=== PATIENT | male | born 1985 | race African-American/Black ===

== ENCOUNTER 2019-08-10 13:44 | Emergency (ER) | payer BC ==
[~2019-08-10] VITALS: Ht 182.9 cm; Wt 81.6 kg
[2019-08-10 14:24] VITALS: BP_SYST 130; BP_SYST 140; BP_SYST 155; BP_DIAS 74; BP_DIAS 84; BP_DIAS 86
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
[2019-08-10 14:34] VITALS: BP 155/84
[2019-08-10] MEDS ORDERED: VISTARIL25 M1 PO (15:51)
[2019-08-10] MEDS ORDERED: FAMOTIDINE20 MG ORAL (15:51)
[2019-08-10 16:00] VITALS: BP 155/84
== END 2019-08-10 16:00 | disposition home or self-care (01) ==
LOC: EMR 14:45
DX: R14.0 Abdominal distension (gaseous) (principal); F43.9 Reaction to severe stress, unspecified; I10 Essential (primary) hypertension; K42.9 Umbilical hernia without obstruction or gangrene
CPT/HCPCS: 99282

== ENCOUNTER 2020-03-26 11:26 | Day surgery (SDC) | payer SELFPAY ==
[2020-03-26] VITALS (7 sets, daily range): BP systolic 131–137; BP diastolic 65–82
[~2020-03-26] VITALS: Ht 182.9 cm; Wt 88.0 kg
[2020-03-26 08:32] LABS: BASOPHILS % (AUTO) 1.2 % (0.0-2.0); EOSINOPHILS % (AUTO) 0.2 % (0.0-3.0); HEMATOCRIT 50.5 % (42.0-52.0); HEMOGLOBIN 16.8 G/DL (14.2-18.0); LYMPHOCYTES % (AUTO) 22.5 % (20.0-45.0); MEAN CORPUSCULAR VOLUME 89 FL (80-99); MONOCYTES % (AUTO) 7.9 % (1.0-10.0); NEUTROPHILS % (AUTO) 68.2 % (45.0-75.0); PLATELET COUNT 308 K/UL (150-450); RED CELL DISTRIBUTION WIDTH 12.9 % (11.6-14.8); WHITE BLOOD COUNT 8.2 K/UL (4.8-10.8)
[~2020-03-26 11:26] MED LIST: FAMOTIDINE20 MG ORAL; LR 1000ml 1,000 ML IVLG SCH; VISTARIL25 M1 PO
[2020-03-26] MEDS ORDERED: Lidocaine 1% MPF 10mg/ml 5ml ONE (11:27)
[2020-03-26] MEDS ORDERED: LR 1000ml ONE (11:27)
[2020-03-26] MEDS ORDERED: LOSARTAN POTASS50 MG ORAL (12:12)
--- NOTE | 2020-03-26 12:30 | Pre-Procedure Note/Attestation ---
Pre-Procedure Note/Attestation Complete Prior to Procedure Planned Procedure: not applicable Procedure Narrative: esophagogastroduodenoscopy and colonoscopy Indications for Procedure Pre-Operative Diagnosis: GERD, abd pain, rectal bleed Attestation I attest that I discussed the nature of the procedure; its benefits; risks and complications; and alternatives (and the risks and benefits of such alternatives), prior to the procedure, with the patient (or the patient's legal medical representative). I attest that, if there was a reasonable possibility of needing a blood transfusion, the patient (or the patient's legal medical representative) was given the [facility] standardized written summary, pursuant to the [place] Blood Safety Act ([place] Health and Safety Code # 1645, as amended). I attest that I re-evaluated the patient just prior to the surgery and that there has been no change in the patient's H&P, except as documented below: Bryan Ibarra MD Mar 26, 2020 12:30
--- NOTE | 2020-03-26 12:32 | Short Stay Surgery H&P ---
History of Present Illness History of Present Illness Chief Complaint GERD, abd pain, rectal bleed HPI Brandon Hanks is a 35 year old male who was admitted on for Gerd, Rectal Bleed Patient History Allergies: Coded Allergies: No Known Allergies (Unverified , 03/24/20) PAST MEDICAL HISTORY: (1) Anxiety (2) Adolescent depression (3) HTN (hypertension) Medication History Scheduled Losartan Potassium* (Losartan Potassium*), 50 MG ORAL DAILY, (Reported) Scheduled PRN Hydroxyzine Pamoate (Vistaril), 25 MG PO Q8HR PRN for anxiety/stress Discontinued Medications Famotidine* (Pepcid 20mg tablet*), 20 MG ORAL DAILY Discontinued Reason: Pt stopped taking med Review of Systems Cardiovascular: Reports: no symptoms Respiratory: Reports: no symptoms Skeletal: Reports: no symptoms Gastrointestinal: Reports: gastro esophageal reflux disease Genitourinary: Reports: no symptoms Neurologic: Reports: no symptoms Endocrine: Reports: no symptoms Physical Exam Vital Signs Last Vital Signs Date Time Temp Pulse Resp B/P (MAP) Pulse Ox O2 Delivery O2 Flow Rate FiO2 03/26/20 12:07 Room Air 03/26/20 09:17 97.6 95 16 136/65 98 Labs Laboratory Tests Test 03/26/20 08:20 White Blood Count 8.2 K/UL (4.8-10.8) Red Blood Count 5.70 M/UL (4.70-6.10) Hemoglobin 16.8 G/DL (14.2-18.0) Hematocrit 50.5 % (42.0-52.0) Mean Corpuscular Volume 89 FL (80-99) Mean Corpuscular Hemoglobin 29.4 PG (27.0-31.0) Mean Corpuscular Hemoglobin Concent 33.2 G/DL (32.0-36.0) Red Cell Distribution Width 12.9 % (11.6-14.8) Platelet Count 308 K/UL (150-450) Mean Platelet Volume 9.3 FL (6.5-10.1) Neutrophils (%) (Auto) 68.2 % (45.0-75.0) Lymphocytes (%) (Auto) 22.5 % (20.0-45.0) Monocytes (%) (Auto) 7.9 % (1.0-10.0) Eosinophils (%) (Auto) 0.2 % (0.0-3.0) Basophils (%) (Auto) 1.2 % (0.0-2.0) Skin: normal HENT: normal Heart: normal Lungs: normal Abdomen: normal Extremities: normal Plan Plan of Care EGD and colonoscopy Attestation Are the patient's medical conditions optimized for surgery? Attestation Response: yes Bryan Ibarra MD Mar 26, 2020 12:32
[2020-03-26] MEDS ORDERED: oxyCODONE HCL/Acetaminophen 5/325mg ORAL PRN (13:00)
[2020-03-26] MEDS ORDERED: HYDROcodone/Acetamin 7.5/325 tab ORAL PRN (13:00)
[2020-03-26] MEDS ORDERED: Ketorolac 30mg Inj IV PRN ×2 (13:00)
[2020-03-26] MEDS ORDERED: fentaNYL 100 mcg/2 mL IV PRN (13:00)
[2020-03-26] MEDS ORDERED: Meperidine 25mg/1ml Inj (FOR RIGORS ONLY) IV PRN (13:00)
[2020-03-26] MEDS ORDERED: Hydromorphone 0.5mg/0.5ml inj IVP PRN (13:00)
[2020-03-26] MEDS ORDERED: Midazolam 2mg/2ml Inj IVP PRN (13:00)
[2020-03-26] MEDS ORDERED: HYDROcodone/Acetamin 5/325 tab ORAL PRN (13:00)
[2020-03-26] MEDS ORDERED: Metoclopramide 10mg/2ml Inj IVP PRN (13:00)
[2020-03-26] MEDS ORDERED: Atropine Sulfate 0.4mg/ml inj IVP PRN (13:00)
[2020-03-26] MEDS ORDERED: DiphenhydrAMINE 50mg/ml Inj IVP PRN (13:00)
[2020-03-26] MEDS ORDERED: Labetalol 5mg/ml 20ml vial IV PRN (13:00)
[2020-03-26] MEDS ORDERED: LR 1000ml 1,000 ML IVLG SCH (13:00)
[2020-03-26] MEDS ORDERED: LORazepam Inj 2mg/ml 1ml IV PRN (13:00)
--- NOTE | 2020-03-26 13:05 | Anethesia Preoperative Eval ---
Anesthesia Pre-op PMH/ROS General Date of Evaluation: Mar 26, 2020 Time of Evaluation: 12:54 Anesthesiologist: Librado ASA Score: ASA 2 Mallampati Score Class I : Soft palate, uvula, fauces, pillars visible Class II: Soft palate, uvula, fauces visible Class III: Soft palate, base of uvula visible Class IV: Only hard plate visible Mallampati Classification: Class I Surgeon: Stacey Diagnosis: Rectal Bleeding Surgical Procedure: EGD/Colonoscopy Anesthesia History: none Family History: no anesthesia problems Allergies: Coded Allergies: No Known Allergies (Unverified , 03/24/20) Medications: see eMAR Patient NPO?: Yes Past Medical History Cardiovascular: Reports: HTN Gastrointestinal/Genitourinary: Reports: GERD Neurologic/Psychiatric: Reports: depression/anxiety Anesthesia Pre-op Phys. Exam Physician Exam Last Vital Signs Date Time Temp Pulse Resp B/P (MAP) Pulse Ox O2 Delivery O2 Flow Rate FiO2 03/26/20 12:07 Room Air 03/26/20 09:17 97.6 95 16 136/65 98 Constitutional: NAD Neurologic: CN 2-12 intact Cardiovascular: RRR Respiratory: CTA Gastrointestinal: S/NT/ND Airway Exam Mallampati Score: Class I MO: full ROM: full Teeth: missing, intact Anesthesia Pre-op A/P Labs Hematology Test 03/26/20 08:20 White Blood Count 8.2 K/UL (4.8-10.8) Red Blood Count 5.70 M/UL (4.70-6.10) Hemoglobin 16.8 G/DL (14.2-18.0) Hematocrit 50.5 % (42.0-52.0) Mean Corpuscular Volume 89 FL (80-99) Mean Corpuscular Hemoglobin 29.4 PG (27.0-31.0) Mean Corpuscular Hemoglobin Concent 33.2 G/DL (32.0-36.0) Red Cell Distribution Width 12.9 % (11.6-14.8) Platelet Count 308 K/UL (150-450) Mean Platelet Volume 9.3 FL (6.5-10.1) Neutrophils (%) (Auto) 68.2 % (45.0-75.0) Lymphocytes (%) (Auto) 22.5 % (20.0-45.0) Monocytes (%) (Auto) 7.9 % (1.0-10.0) Eosinophils (%) (Auto) 0.2 % (0.0-3.0) Basophils (%) (Auto) 1.2 % (0.0-2.0) Risk Assessment & Plan Assessment: ASA 2 Plan: TIVA Status Change Before Surgery: No Miguel A Pavon MD Mar 26, 2020 13:05
--- NOTE | 2020-03-26 13:14 | Immediate Post-Op Evaluation ---
Immediate Post-Op Evalulation Immediate Post-Op Evalulation Procedure: EGD/Colonoscopy Date of Evaluation: Mar 26, 2020 Time of Evaluation: 13:47 IV Fluids: 600 LR Blood Products: 0 Estimated Blood Loss: 2 Urinary Output: 0 Blood Pressure Systolic: 131 Blood Pressure Diastolic: 82 Pulse Rate: 109 Respiratory Rate: 16 O2 Sat by Pulse Oximetry: 100 Temperature (Fahrenheit): 99 Pain Score (1-10): 2 Nausea: No Vomiting: No Complications 0 Patient Status: awake, reacts, patent, none Hydration Status: adequate Miguel A Pavon MD Mar 26, 2020 13:14
--- NOTE | 2020-03-26 13:16 | 48 Hour Post Anesthesia Eval ---
Post Anesthesia Evaluation Procedure: EGD/Colonoscopy Date of Evaluation: Mar 26, 2020 Time of Evaluation: 15:57 Blood Pressure Systolic: 148 0: 83 Pulse Rate: 104 Respiratory Rate: 18 Temperature (Fahrenheit): 98.6 O2 Sat by Pulse Oximetry: 100 Airway: patent Nausea: No Vomiting: No Pain Intensity: 2 Hydration Status: adequate Cardiopulmonary Status: Stable Mental Status/LOC: patient returned to baseline Follow-up Care/Observations: 0 Post-Anesthesia Complications: 0 Follow-up care needed: ready to discharge Miguel A Pavon MD Mar 26, 2020 13:16
--- NOTE | 2020-03-26 15:00 | Procedure Note ---
DATE OF PROCEDURE: 03/26/2020 ENDOSCOPIST: Bryan Ibarra M.D. ANESTHESIOLOGIST: Miguel A Pavon M.D. PROCEDURE PERFORMED: Upper endoscopy with biopsy and colonoscopy. INSTRUMENT USED: Olympus adult flexible endoscope and colonoscope. INDICATIONS FOR PROCEDURE: Rectal bleeding, abdominal pain, chronic reflux disease. The procedure, risks, benefits, and possible consequences, including hemorrhage, aspiration, perforation and infection, and alternative treatments, were explained to the patient/legal guardian by Dr. Bryan Ibarra and the patient/legal guardian understood and accepted these risks. DESCRIPTION OF PROCEDURE: After informed consent was obtained and the patient was adequately sedated, the Olympus upper endoscope was advanced through the mouth into the second portion of the duodenum and retroflexion maneuver was performed In the stomach. The patient has mild diffuse gastritis. Random biopsies from antrum were obtained to rule out H. pylori infection. Otherwise, the rest of upper endoscopic examination grossly looked within normal limits. GE junction at about 35 cm from the incisors without any obvious esophagitis. At this time, the upper endoscope was retrieved. The patient was turned over for colonoscopy. First, rectal exam was performed, which was positive for internal hemorrhoids. Then, the scope was advanced from rectum to the cecum, then subsequently terminal ileum. Quality of prep was good. The patient had normal colonoscopic examination up to the terminal ileum. No obvious ulcerations. No mass, no polyps, no diverticulosis. No other pathology. Retroflexion of rectum showed evidence of internal hemorrhoids. SUMMARY OF FINDINGS: 1. Nonspecific gastritis, status post biopsy. 2. Internal hemorrhoids. RECOMMENDATIONS: Follow up biopsies and treat accordingly. Bryan Ibarra M.D. DR: TORO JOB#: [id number] CC:
== END 2020-03-26 14:45 | disposition home or self-care (01) ==
LOC: GAS 11:26
DX: K62.5 Hemorrhage of anus and rectum (principal); K21.9 Gastro-esophageal reflux disease without esophagitis; R10.9 Unspecified abdominal pain; K29.70 Gastritis, unspecified, without bleeding; K64.8 Other hemorrhoids; F41.9 Anxiety disorder, unspecified; I10 Essential (primary) hypertension; F32.9 Major depressive disorder, single episode, unspecified
CPT/HCPCS: 36415; 43239; 45378; 85025; 94003; J2250; J2704; J7120; U0002; 94150

== ENCOUNTER 2020-04-07 12:54 | Outpatient (CLI) | payer OTHER ==
[~2020-04-07 12:54] MED LIST changes: +LOSARTAN POTASS50 MG ORAL; -LR 1000ml 1,000 ML IVLG SCH
--- NOTE | 2020-04-07 15:39 | General Progress Note ---
Subjective ROS Limited/Unobtainable: Yes Allergies: Coded Allergies: No Known Allergies (Unverified , 03/24/20) Objective General Appearance: alert EENT: normal ENT inspection Neck: supple Cardiovascular: normal rate Respiratory/Chest: lungs clear Abdomen: normal bowel sounds, non tender, soft Extremities: non-tender Assessment/Plan Assessment/Plan: s/p EGD and colonoscopy no active bleed RTC prn Bryan Ibarra MD Apr 07, 2020 15:38
== END 2020-04-07 14:54 | disposition home or self-care (01) ==
LOC: PAN 12:54
DX: Z98.890 Other specified postprocedural states (principal)
CPT/HCPCS: 99212